=== PATIENT | female | born 1955 | race American Indian/Alaskan Native ===

== ENCOUNTER 2019-04-25 09:38 | Emergency (ER) | payer MEDICARE ==
[2019-04-25] MEDS ORDERED: NACL 0.9% 500 ML 500 ML IV ONE (10:35)
[2019-04-25] MEDS ORDERED: TYLENOL PO PRN (10:35)
[2019-04-25] MEDS ORDERED: SUBLIMAZE IV ONE ×2 (10:35→13:52)
--- NOTE | 2019-04-25 10:36 | Emergency Department Report ---
ED General Adult HPI - General Chief complaint: Abdominal Pain Stated complaint: LT SIDE PAIN/ABD PAIN Time Seen by Provider: 04/25/19 10:25 Source: patient, RN notes reviewed Mode of arrival: Ambulatory Limitations: No Limitations - History of Present Illness Initial comments: Primary care Dr.: Dr. Belgica Hameed Past medical history: Diabetes, hypertension, question high cholesterol, peripheral artery disease, reported history of arterial bypass, performed 4 years ago in [place] This is a 63-year-old female. The patient is not known to this provider p reviously. The patient presents to the emergency room today with a complaint of sharp left-sided flank pain. The pain radiates to the left upper quadrant. It is present for the past 4-5 days. It is intermittent. It worsens with palpation, twisting, position, decreases with rest. The patient has not taken any medication [id number]. The patient has a chronic cough. The patient denies chest pain, shortness of breath. She is not having dysuria. She denies nausea, vomiting, diarrhea. She may have had a fever, but she is not certain. -: Sudden Location: back Radiation: abdomen Quality: aching Consistency: intermittent Improves with: other Worsens with: other - Related Data Previous Rx's Medication Instructions Recorded Last Taken Type Acetaminophen [Non-Aspirin Extra 500 mg PO Q6HR PRN #30 tablet 04/25/19 Unknown Rx Strength] Ibuprofen [Motrin] 600 mg PO Q8H PRN #30 tablet 04/25/19 Unknown Rx Allergies Allergy/AdvReac Type Severity Reaction Status Date / Time Sulfa (Sulfonamide Allergy Shortness Verified 04/25/19 09:40 Antibiotics) of Breath ED Review of Systems ROS: Stated complaint: LT SIDE PAIN/ABD PAIN Other details as noted in HPI Constitutional: fever (question fever, patient is not certain) Eyes: denies: eye discharge ENT: denies: epistaxis Respiratory: cough Cardiovascular: denies: chest pain Gastrointestinal: abdominal pain Genitourinary: denies: dysuria Musculoskeletal: back pain Skin: denies: lesions Neurological: denies: weakness Psychiatric: denies: anxiety ED Past Medical Hx - Past Medical History Hx Hypertension: Yes Hx Diabetes: Yes Additional medical history: PAD - Surgical History Hx Cholecystectomy: Yes Additional Surgical History: Bypass legs, C/S, Hyst - Social History Smoking Status: Current Every Day Smoker Substance Use Type: Alcohol - Medications Home Medications: Home Medications Medication Instructions Recorded Confirmed Last Taken Type Acetaminophen [Non-Aspirin Extra 500 mg PO Q6HR PRN #30 tablet 04/25/19 Unknown Rx Strength] Ibuprofen [Motrin] 600 mg PO Q8H PRN #30 tablet 04/25/19 Unknown Rx ED Physical Exam - General Limitations: No Limitations General appearance: alert, in no apparent distress - Head Head exam: Present: atraumatic, normocephalic - Eye Eye exam: Present: normal appearance, EOMI. Absent: nystagmus - ENT ENT exam: Present: normal exam, normal orophraynx, mucous membranes moist, normal external ear exam - Neck Neck exam: Present: normal inspection, full ROM. Absent: tenderness, meningismus - Respiratory Respiratory exam: Present: normal lung sounds bilaterally. Absent: respiratory distress - Cardiovascular Cardiovascular Exam: Present: regular rate, normal rhythm, normal heart sounds. Absent: bradycardia, tachycardia, irregular rhythm, systolic murmur, diastolic murmur, rubs, gallop - GI/Abdominal GI/Abdominal exam: Present: soft, tenderness, other (there is minimal left upper quadrant tenderness. There is no rebound, guarding or peritoneal sign.). Absent: distended, guarding, rebound, rigid, pulsatile mass - Extremities Exam Extremities exam: Present: normal inspection, full ROM, other (2+ femoral pulses noted in the bilateral lower extremities. Patient has appropriate capillary refill in the bilateral lower extremities. dorsalis pedis pulses are not appreciated. 2+ pulses noted in the bilateral upper extremities. The muscular compartments are soft.). Absent: pedal edema, calf tenderness - Back Exam Back exam: Present: normal inspection, full ROM, CVA tenderness (L). Absent: tenderness, CVA tenderness (R), muscle spasm, paraspinal tenderness, vertebral tenderness - Neurological Exam Neurological exam: Present: alert, oriented X3, other (Extraocular movements intact. Tongue midline. No facial droop. Facial sensation intact to light touch in the V1, V2, V3 distribution bilaterally. 5 and 5 strength in 4 extremities.. Sensation is intact to light touch in 4 extremities.). Absent: motor sensory deficit - Psychiatric Psychiatric exam: Present: normal affect, normal mood - Skin Skin exam: Present: warm, dry, intact, normal color. Absent: rash ED Course Vital Signs 04/25/19 04/25/19 09:45 10:52 Temperature 98.3 F Pulse Rate 82 66 Respiratory 16 18 Rate Blood Pressure 189/92 Blood Pressure 167/64 [Left] O2 Sat by Pulse 97 100 Oximetry - Reevaluation(s) Reevaluation #1: 04/25/19 10:56 Differential diagnosis, including but not limited to: AAA, renal colic, urinary tract infection, urinary embolus, chronic peripheral artery disease, pancreatitis Assessment and plan: 63-year-old female with nontraumatic left-sided flank pain, left upper quadrant pain, complex arterial history. She does not endorse lower extremity complaints or claudication. She has proximal pulses intact in the bilateral femoral regions. She endorses no DVT or pulmonary embolus risk factors. I suspect the etiology of the patient's pain and discomfort is most likely renal in origin. Screening laboratory studies have been requested. Urinalysis requested. CT scan of the chest, abdomen, pelvis requested. IV fluids ordered. We will reassess after her initial data points. Patient's EKG is reviewed and appreciated, she is not endorsing chest pain, there is no prior for comparison, the patient can follow up with an outpatient primary care doctor or landscaping crew leader for her incidental abnormal EKG. Reevaluation #2: 04/25/19 13:[address] scan of the chest, abdomen, pelvis negative for significant or objectively demonstrated emergent disease. Incidental findings noted. Patient had an unexpected and unanticipated contrast extravasation in the right upper e xtremity. On the distal right bicep, medially, there is a oval-shaped area, approximately 6 x 5 x 5 cm, with minimal blistering. Distally, she is neurovascularly intact. She is given additional pain medication. Warm compresses are applied. There is no evidence of compartment syndrome. The patient will be discharged with pain medication, instructions to follow up with her outpatient primary care doctor, instruction to follow up with an outpatient landscaping crew leader for her incidental EKG, and she can follow up routinely with an outpatient vascular surgeon. She will also be instructed to return in 2 days, or follow-up in 2 days for repeat right upper extremity checkup/evaluation. ED Medical Decision Making - Lab Data Result diagrams: 04/25/19 10:07 04/25/19 10:07 Vital Signs 04/25/19 04/25/19 09:45 10:52 Temperature 98.3 F Pulse Rate 82 66 Respiratory 16 18 Rate Blood Pressure 189/92 Blood Pressure 167/64 [Left] O2 Sat by Pulse 97 100 Oximetry Lab Results 04/25/19 04/25/19 Range/Units 10:07 10:34 WBC 9.7 (4.5-11.0) K/mm3 RBC 5.36 H (3.65-5.03) M/mm3 Hgb 15.3 H (10.1-14.3) gm/dl Hct 45.7 H (30.3-42.9) % MCV 85 (79-97) fl MCH 29 (28-32) pg MCHC 34 (30-34) % RDW 14.0 (13.2-15.2) % Plt Count 372 (140-440) K/mm3 Lymph % (Auto) 28.7 (13.4-35.0) % [place] % (Auto) 7.6 H (0.0-7.3) % Eos % (Auto) 1.4 (0.0-4.3) % Baso % (Auto) 0.6 (0.0-1.8) % Lymph # 2.8 (1.2-5.4) K/mm3 [place] # 0.7 (0.0-0.8) K/mm3 Eos # 0.1 (0.0-0.4) K/mm3 Baso # 0.1 (0.0-0.1) K/mm3 Seg Neutrophils % 61.7 (40.0-70.0) % Seg Neutrophils # 6.0 (1.8-7.7) K/mm3 Urine Bilirubin Neg (Negative) Urine RBC (Auto) 2.0 (0.0-6.0) /HPF U Epithel Cells (Auto) 1.0 (0-13.0) /HPF - EKG Data -: EKG Interpreted by [facility] EKG shows normal: sinus rhythm Rate: normal - EKG Data When compared to previous EKG there are: previous EKG unavailable 04/25/19 10:58 EKG shows a sinus rhythm, 64 bpm, normal axis, QTC within normal limits, biphasic T-wave V2, T-wave inversions V3, V4, V5 and V6. Flattened T waves in the inferior leads. The patient is not having chest pain. This is an abnormal EKG. It is not consistent with ST elevation myocardial infarction. - Radiology Data Radiology results: pending, report reviewed, image reviewed Print Report Referring Physician: KHADAR ANDERSON Patient Name: DAMARIS WEEKS Date of : 1955 Sex: Female Report Date: 2019-04-25 Report Status: Finalized Findings [facility] [address] [place] [address] Cat Scan Report Signed Patient: DAMARIS WEEKS MR#: [id number] : 1955 Acct:[id number] Age/Sex: 63 / F ADM Date: 04/25/19 Loc: ED Attending Dr: Ordering Physician: KHADAR ANDERSON MD Date of Service: 04/25/19 Procedure(s): CT angio chest Accession Number(s): [id number] cc: KHADAR ANDERSON MD CT ANGIOGRAM CHEST CT ANGIOGRAM ABDOMEN AND PELVIS HISTORY: Cough, abdominal pain, left flank pain. TECHNIQUE: Helical CT was performed following IV contrast. Sagittal and coronal reformatted images. FINDINGS: Please note that an IV infiltration in the right antecubital fossa occurred during injection. There is however adequate IV contrast in the vascular structures. The thoracic aorta and proximal abdominal aorta are normal caliber throughout. Scattered partially calcified plaques are noted. No aneurysm or dissection. The distal abdominal aorta and bilateral common iliac arteries are occluded. An aortobifemoral bypass is identified which is widely patent. There is a small pseudoaneurysm in the left groin at the left distal anastomosis site measuring 1.8 cm. The celiac axis, SMA and bilateral single renal arteries are patent with less than 30% stenosis. Heart and mediastinal structures are unremarkable. The lungs are well- aerated. No parenchymal lung disease, mass or pleural effusion. The gallbladder is been surgically removed. Normal liver, pancreas, spleen, kidneys and adrenal glands. No evidence for bowel obstruction or focal inflammation. Normal appendix. Hysterectomy changes are suspected. The bladder and distal ureters are unremarkable. The bony structures are intact. IMPRESSION: No acute process is identified in the chest, abdomen or pelvis. An aortobifemoral bypass graft is identified which is patent. A 1.8 cm left groin pseudoaneurysm is identified. No clear explanation for left flank pain. Transcribed By: TTR Dictated By: VISHNU CHINCHILLA JR, MD Electronically Authenticated By: VISHNU CHINCHILLA JR, MD Signed Date/Time: 04/25/19 6909 Critical care attestation.: If time is entered above; I have spent that time in minutes in the direct care of this critically ill patient, excluding procedure time. ED Disposition Clinical Impression: Left flank pain Disposition: DC-01 TO HOME OR SELFCARE Is pt being admited?: No Does the pt Need Aspirin: No Condition: Stable Instructions: Abdominal Pain (ED) Additional Instructions: Continue outpatient medications. Take the pain medications as needed/directed. Drink 4-6 cups of water per day, for the next 4-5 days. Do not take metformin for the next 48 hours, if patient takes this prescription medication. Please apply warm compresses liberally to the right upper extremity, at least once every 2-4 hours. Patient may apply [id number] aloe vera to the right upper extremity blister and wound. Please have the right upper extremity evaluated by medical professional in 2 days for repeat checkup/evaluation. The patient may return to this emergency room, follow-up at an urgent care center, or follow-up with her primary care doctor for repeat checkup/evaluation. If the patient develops right upper extremity weakness, numbness, loss of movement, loss of sensation, redness, streaking, pus, please return to the emergency room right away. CT scan of the abdomen and pelvis demonstrated no acute or emergent condition that would require immediate medical or surgical intervention. However, nonemergent incidental findings were noted. These should be followed up by her primary care doctor within the next month. Please have your primary care doctor contacted the medical records department to obtain CT scan interpretation. The patient should follow-up with a vascular surgeon within the next 3-6 weeks for routine outpatient follow-up. EKG today demonstrated nonspecific nonemergent abnormalities. Please continue current outpatient medications. Please follow up with her primary care doctor or a local listed cardiology specialists for the incidental abnormal findings on the patient's EKG. the patient may follow-up for this within the next 2-4 weeks. Please return to the emergency room right away with new, worsening or different symptoms, or symptoms not present on the initial emergency room evaluation. Referrals: CHAD HAMEED MD [Primary Care Provider] - 3-5 Days [facility] [Provider Group] - 3-5 Days [facility] [Provider Group] - 3-5 Days
[2019-04-25 10:37] LABS: Basophils # (Auto) 0.1 K/mm3 (0.0-0.1); Basophils % (Auto) 0.6 % (0.0-1.8); Eosinophils # (Auto) 0.1 K/mm3 (0.0-0.4); Eosinophils % (Auto) 1.4 % (0.0-4.3); Hematocrit 45.7 % (30.3-42.9); Hemoglobin 15.3 gm/dl (10.1-14.3); Lymphocytes # (Auto) 2.8 K/mm3 (1.2-5.4); Lymphocytes % (Auto) 28.7 % (13.4-35.0); Mean Corpuscular HGB Conc 34 % (30-34); Mean Corpuscular Volume 85 fl (79-97); Monocytes # (Auto) 0.7 K/mm3 (0.0-0.8); Monocytes % (Auto) 7.6 % (0.0-7.3); Platelet Count 372 K/mm3 (140-440); Red Blood Count 5.36 M/mm3 (3.65-5.03)
[2019-04-25 10:56] LABS: Bilirubin,Urine NEG (Negative); Blood,Urine SM (Negative); Color,Urine Yellow (Yellow); Mucus,Urine FEW /HPF; Protein,Urine <15 mg/dL mg/dL (Negative); Urobilinogen,Urine < 2.0 mg/dL (<2.0); WBC,Urine < 1.0 /HPF (0.0-6.0)
[2019-04-25 11:13] LABS: Alanine Aminotransferase 10 units/L (7-56); Albumin 3.9 g/dL (3.9-5); BUN/Creatinine Ratio 14; Blood Urea Nitrogen 11 mg/dL (7-17); Calcium 9.1 mg/dL (8.4-10.2); Hemolysis Index 3
[2019-04-25 11:26] LABS: INR 0.94 (0.87-1.13)
[2019-04-25 11:27] LABS: Partial Thromboplastin Time 26.1 Sec. (24.2-36.6)
--- NOTE | 2019-04-25 13:33 | Cat Scan Report ---
CT ANGIOGRAM CHEST CT ANGIOGRAM ABDOMEN AND PELVIS HISTORY: Cough, abdominal pain, left flank pain. TECHNIQUE: Helical CT was performed following IV contrast. Sagittal and coronal reformatted images. FINDINGS: Please note that an IV infiltration in the right antecubital fossa occurred during injection. There is however adequate IV contrast in the vascular structures. The thoracic aorta and proximal abdominal aorta are normal caliber throughout. Scattered partially calcified plaques are noted. No aneurysm or dissection. The distal abdominal aorta and bilateral common iliac arteries are occluded. An aortobifemoral bypass is identified which is widely patent. There is a small pseudoaneurysm in the left groin at the left distal anastomosis site measuring 1.8 cm. The celiac axis, SMA and bilateral single renal arteries are patent with less than 30% stenosis. Heart and mediastinal structures are unremarkable. The lungs are well-aerated. No parenchymal lung disease, mass or pleural effusion. The gallbladder is been surgically removed. Normal liver, pancreas, spleen, kidneys and adrenal glands. No evidence for bowel obstruction or focal inflammation. Normal appendix. Hysterectomy changes are suspected. The bladder and distal ureters are unremarkable. The bony structures are intact. IMPRESSION: No acute process is identified in the chest, abdomen or pelvis. An aortobifemoral bypass graft is identified which is patent. A 1.8 cm left groin pseudoaneurysm is identified. No clear explanation for left flank pain.
[2019-04-25] MEDS ORDERED: ROXICODONE PO ONE (14:05)
[2019-04-25 15:56] VITALS: BP 161/90
== END 2019-04-25 15:56 | disposition home or self-care (01) ==
LOC: ED 09:38
DX: R10.9 Unspecified abdominal pain (principal); R05 Cough; E11.9 Type 2 diabetes mellitus without complications; I10 Essential (primary) hypertension; F17.200 Nicotine dependence, unspecified, uncomplicated; Z90.49 Acquired absence of other specified parts of digestive tract; Z88.2 Allergy status to sulfonamides
CPT/HCPCS: 36415; 71275; 74174; 80053; 81001; 83690; 85025; 85610; 85730; 93005; 93010; 96374; 99284; J3010; J7040; Q9967

== ENCOUNTER 2019-06-25 09:58 | Emergency (ER) | payer OTHER, MEDICARE ==
[2019-06-25 10:11] VITALS: BP 217/111
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
== END 2019-06-25 11:54 | disposition home or self-care (01) ==
LOC: ED 09:58
DX: S80.12XA Contusion of left lower leg, initial encounter (principal); M62.830 Muscle spasm of back; M54.2 Cervicalgia; I10 Essential (primary) hypertension; E11.9 Type 2 diabetes mellitus without complications; Z90.49 Acquired absence of other specified parts of digestive tract; Z90.710 Acquired absence of both cervix and uterus; Z79.4 Long term (current) use of insulin; Z79.899 Other long term (current) drug therapy; Z88.2 Allergy status to sulfonamides; V49.49XA Driver injured in collision with other motor vehicles in traffic accident, initial encounter; Y93.89 Activity, other specified; Y92.488 Other paved roadways as the place of occurrence of the external cause; Y99.8 Other external cause status
CPT/HCPCS: 99282

== ENCOUNTER 2020-03-19 17:07 | Emergency (ER) | payer MEDICARE, OTHER ==
[2020-03-19 18:24] LABS: Basophils # (Auto) 0.1 K/mm3 (0.0-0.1); Basophils % (Auto) 0.7 % (0.0-1.8); Eosinophils # (Auto) 0.1 K/mm3 (0.0-0.4); Eosinophils % (Auto) 0.7 % (0.0-4.3); Hematocrit 47.3 % (30.3-42.9); Hemoglobin 15.8 gm/dl (10.1-14.3); Lymphocytes # (Auto) 3.3 K/mm3 (1.2-5.4); Lymphocytes % (Auto) 20.1 % (13.4-35.0); Mean Corpuscular HGB Conc 33 % (30-34); Mean Corpuscular Volume 87 fl (79-97); Monocytes # (Auto) 0.9 K/mm3 (0.0-0.8); Monocytes % (Auto) 5.6 % (0.0-7.3); Platelet Count 302 K/mm3 (140-440); Red Blood Count 5.46 M/mm3 (3.65-5.03); Red Cell Distribution Width 13.9 % (13.2-15.2)
--- NOTE | 2020-03-19 18:37 | Event Note ---
ED Screening Note Date of service: 03/19/20 Time: 18:01 ED Screening Note: This initial assessment/diagnostic orders/clinical plan/treatment(s) is/are subject to change based on patients health status, clinical progression and re- assessment by fellow clinical providers in the ED. Further treatment and workup at subsequent clinical providers discretion. Patient/guardian urged not to elope from the ED as their condition may be serious if not clinically assessed and managed. Initial orders include:
[2020-03-19 18:49] LABS: Erythrocyte Sedimentation Rate 13 mm/Hr (0-20)
[2020-03-19 18:50] LABS: BUN/Creatinine Ratio 14; Blood Urea Nitrogen 13 mg/dL (7-17); Calcium 10.2 mg/dL (8.4-10.2); Hemolysis Index 29
[2020-03-19 19:49] VITALS: BP 129/63
--- NOTE | 2020-03-19 19:49 | XRay Report ---
Left foot 3 views INDICATION: Left foot pain and swelling. IMPRESSION: There is some mild soft tissue edema involving the third and fourth toes. Disuse type ost eopenia of the left foot noted. No underlying fracture is identified. No convincing evidence of osteo myelitis. Signer Name: Seng Lobo MD Signed: 03/19/2020 7:44 PM Workstation Name: [id number]
--- NOTE | 2020-03-19 20:20 | Emergency Department Report ---
ED General Adult HPI - General Chief complaint: Extremity Injury, Lower Stated complaint: TOE PAIN Time Seen by Provider: 03/19/20 19:52 Source: patient Mode of arrival: Ambulatory Limitations: No Limitations - History of Present Illness Initial comments: 64-year-old -[place] female with past medical history of diabetes and hypertension presents emergency department complaining of a two-week history of pain to her left second and third toe still has a day of turning blue and having no relief with antibiotics. She initially saw her primary care provider who was treating her for toe infection at she did not improve after a week she fever if she followed up and they added more antibiotics. She has been taking doxycycline with no improvement. Reports no fever, chills, sweats no injury no numbness and tingling no nausea no vomiting Radiation: non-radiation, extremity, other (Second and third toe) Improves with: none Worsens with: none Associated Symptoms: denies other symptoms Treatments Prior to Arrival: none - Related Data Previous Rx's Medication Instructions Recorded Last Taken Type Acetaminophen [Non-Aspirin Extra 500 mg PO Q6HR PRN #30 tablet 04/25/19 Unknown Rx Strength] Baclofen 5 mg PO TID PRN #15 tablet 06/25/19 Unknown Rx Ibuprofen [Motrin 600 MG tab] 600 mg PO Q8H PRN #30 tablet 06/25/19 Unknown Rx Acetaminophen/Codeine [Tylenol 1 tab PO Q8H PRN #10 tab 03/19/20 Unknown Rx /Codeine # 3 tab] Allergies Allergy/AdvReac Type Severity Reaction Status Date / Time Sulfa (Sulfonamide Allergy Shortness Verified 03/19/20 17:15 Antibiotics) of Breath ED Review of Systems ROS: Stated complaint: TOE PAIN Other details as noted in HPI Comment: All other systems reviewed and negative ED Past Medical Hx - Past Medical History Previous Medical History?: Yes Hx Hypertension: Yes Hx Diabetes: Yes Additional medical history: PAD - Surgical History Past Surgical History?: Yes Hx Cholecystectomy: Yes Additional Surgical History: Bypass legs, C/S, Hyst - Social History Smoking Status: Never Smoker Substance Use Type: None - Medications Home Medications: Home Medications Medication Instructions Recorded Confirmed Last Taken Type Acetaminophen [Non-Aspirin Extra 500 mg PO Q6HR PRN #30 tablet 04/25/19 Unknown Rx Strength] Baclofen 5 mg PO TID PRN #15 tablet 06/25/19 Unknown Rx Ibuprofen [Motrin 600 MG tab] 600 mg PO Q8H PRN #30 tablet 06/25/19 Unknown Rx Acetaminophen/Codeine [Tylenol 1 tab PO Q8H PRN #10 tab 03/19/20 Unknown Rx /Codeine # 3 tab] ED Physical Exam - General Limitations: No Limitations - Head Head exam: Present: atraumatic, normocephalic - Eye Eye exam: Present: normal appearance - Neck Neck exam: Present: normal inspection - Respiratory Respiratory exam: Present: normal lung sounds bilaterally. Absent: respiratory distress - Cardiovascular Cardiovascular Exam: Present: regular rate, normal rhythm. Absent: systolic murmur, diastolic murmur, rubs, gallop - Extremities Exam Extremities exam: Present: full ROM. Absent: tenderness, pedal edema, calf tenderness - Expanded Lower Extremity Exam Left 1 - Coolness to the toes slight bluish appearance is noted there is tenderness with palpation pallor also is noted. Capillary refill sluggish 2 - 1+ posterior to to the dorsalis pedis 1 - Very slight bluish appearance or bruising is noted. No abscesses present. No warts noted - Back Exam Back exam: Present: normal inspection - Neurological Exam Neurological exam: Present: alert, oriented X3, CN II-XII intact, normal gait ED Course Vital Signs 03/19/20 03/19/20 17:12 19:35 Temperature 98.3 F Pulse Rate 117 H 99 H Respiratory 18 17 Rate Blood Pressure 137/79 Blood Pressure 129/63 [Right] O2 Sat by Pulse 97 97 Oximetry - Consultations Consultation #1: 03/19/20 20:24 Case was discussed with Dr. Chris Perez who also had [id number] and evaluated Ms. Brady as well. Plan is to have patient follow-up with a vascular surgeon. ED Medical Decision Making - Lab Data Result diagrams: 03/19/20 18:04 04/21/20 18:04 Critical care attestation.: If time is entered above; I have spent that time in minutes in the direct care o f this critically ill patient, excluding procedure time. ED Disposition Clinical Impression: Toe pain, left, Peripheral vascular disease Disposition: TO HOME OR SELFCARE Is pt being admited?: No Does the pt Need Aspirin: No Condition: Stable Additional Instructions: Please be sure to follow-up with a vascular surgeon as we discussed for further evaluation and treatment options you may keep your appointment with the vascular surgeon you have him on Wednesday I have also listed some some other surgeons for your convenience Prescriptions: Acetaminophen/Codeine [Tylenol /Codeine # 3 tab] 1 tab PO Q8H PRN #10 tab PRN Reason: Pain , Severe (7-10) Referrals: PRIMARY CARE, [Primary Care Provider] - 3-5 Days TIMMY AUGUST MD [Staff Physician] - 3-5 Days VIKAS ROGER MD [Staff Physician] - 3-5 Days HUE HANSON MD [Staff Physician] - 3-5 Days NORAH DAMIAN MD [Staff Physician] - 3-5 Days
[2020-03-19] MEDS ORDERED: SODIUM CHLORIDE 0.9% 1000 ML 1,000 ML IV ONE (20:34)
== END 2020-03-19 20:34 | disposition home or self-care (01) ==
LOC: ED 17:07
DX: M79.675 Pain in left toe(s) (principal); I73.89 Other specified peripheral vascular diseases; I10 Essential (primary) hypertension; E11.9 Type 2 diabetes mellitus without complications; Z90.49 Acquired absence of other specified parts of digestive tract; Z88.6 Allergy status to analgesic agent; Z79.899 Other long term (current) drug therapy
CPT/HCPCS: 36415; 80048; 85025; 85652